=== PATIENT | female | born 1960 | race Caucasian/White ===

== ENCOUNTER → 2016-07-10 | Outpatient (CLI) | payer OTHER ==
[~2016-07-10] MED LIST: ASPI81TA82 PO; METF500T PO; NYSTCRE29 TOPICAL; PROT40TA PO; SYNT75TA PO; ZITHTAB PO
[2016-07-10 09:39] LABS: AUTOMATED NEUTROPHIL # 2.9 TH/MM3 (1.8-7.7); BASOPHIL % 0.4 % (0.0-2.0); EOSINOPHIL # 0.1 TH/MM3 (0-0.4); EOSINOPHIL % 1.1 % (0.0-4.0); HEMATOCRIT 42.9 % (35.0-46.0); HEMO FLAGS DIFF FINAL; LYMPHOCYTE # 2.8 TH/MM3 (1.0-4.8); MEAN CELL VOLUME 90.6 FL (80.0-100.0); MEAN CORPUSCULAR HEMOGLOBIN 30.9 PG (27.0-34.0); MEAN CORPUSCULAR HGB CONC 34.1 % (32.0-36.0); MONO % 7.3 % (0.0-8.0); NEUT % 46.2 % (16.0-70.0); PLATELET COUNT 272 TH/MM3 (150-450); RED BLOOD COUNT 4.73 MIL/MM3 (4.00-5.30); RED CELL DISTRIBUTION WIDTH 12.7 % (11.6-17.2); WHITE BLOOD COUNT 6.2 TH/MM3 (4.0-11.0)
[2016-07-10 10:21] LABS: ALKALINE PHOSPHATASE 71 U/L (45-117); ALT (GPT) 25 U/L (10-53); ANION GAP 5 MEQ/L (5-15); AST (GOT) 15 U/L (15-37); BICARBONATE 29.6 MEQ/L (21.0-32.0); BLOOD UREA NITROGEN 16 MG/DL (7-18); CHLORIDE 104 MEQ/L (98-107); GLOMERULAR FILTRATION RATE 56 ML/MIN (>89); GLUCOSE,FASTING 94 MG/DL (74-99); HDL CHOLESTEROL 83.2 MG/DL (40.0-60.0); LDL CHOLESTEROL 163 MG/DL (0-99); LUTEINIZING HORMONE 23.6 mIU/mL; POTASSIUM 4.4 MEQ/L (3.5-5.1); SODIUM (NA) 139 MEQ/L (136-145); TOTAL BILIRUBIN ADULT 0.5 MG/DL (0.2-1.0)
[2016-07-12 12:06] LABS: ESTRADIOL 16 pg/mL (())
[2016-07-13 23:52] LABS: PROGESTERONE LESS THAN 0.1 ng/mL (())
== END ==
LOC: ELAB 08:04
DX: O99.281 Endocrine, nutritional and metabolic diseases complicating pregnancy, first trimester (principal); E55.9 Vitamin D deficiency, unspecified; E28.0 Estrogen excess; E28.8 Other ovarian dysfunction; M79.605 Pain in left leg; Z13.0 Encounter for screening for diseases of the blood and blood-forming organs and certain disorders involving the immune mechanism
CPT/HCPCS: 36415; 80053; 80061; 82306; 82670; 83001; 83002; 84144; 84403; 84439; 84443; 84480; 85025